=== PATIENT | male | born 1985 | race Caucasian/White ===

== ENCOUNTER 2018-07-06 01:11 | Emergency (ER) | payer MEDICAID, OTHER ==
[2018-07-06] MEDS: LIDOCAINE 1% (MDV) 20 ML INJ SC (02:28)
[2018-07-06] MEDS: HYDROCODONE/APAP (5/325) TAB PO (02:28)
== END 2018-07-06 04:25 | disposition home or self-care (01) ==
LOC: FTE 01:11
DX: S61.411A Laceration without foreign body of right hand, initial encounter (principal); F17.210 Nicotine dependence, cigarettes, uncomplicated; W26.0XXA Contact with knife, initial encounter; Y92.9 Unspecified place or not applicable
CPT/HCPCS: 12002; 73130-RT; 99283-25